=== PATIENT | male | born 1980 | race Caucasian/White ===

== ENCOUNTER 2017-07-18 17:15 | Emergency (ER) | payer SELFPAY ==
[~2017-07-18] VITALS: Ht 175.3 cm; Wt 98.0 kg
[2017-07-18 18:05] VITALS: BP 153/101; PULSE 117; RESP 16; TEMP 98.7; O2SAT 99
--- NOTE | 2017-07-18 19:00 | PD ---
HPI Chief Complaint: Complaint Time Seen by Provider: 18:33 Travel History International Travel<30 days: No Contact w/Intl Traveler<30days: No History of Present Illness HPI 37-year-old male patient presents to the ER today because he states that a few days ago he was having sexual relations with his girlfriend when he suddenly felt like his left testicle popped out of place, he felt like there was a lump there, and it was very painful for about 3 minutes and it popped back into place and he feels like since then he has been having some discomfort in the left testicle area. He is concerned that he may have twisted his testicle or injured something. He denies any trouble urinating, any fevers, or any other issues. Modifying Factors: None Associated Signs & Symptoms: Left testicular lump, pain, possible injury Risk Factors: None PFSH Social History Alcohol Use: Yes (4 DAYS A WEEK) Tobacco Use: No Substance Use: Yes (marijuana) Allergies-Medications (Allergen,Severity, Reaction): Coded Allergies: No Known Allergies (Unverified Adverse Reaction, Unknown, 07/18/17) Reported Meds & Prescriptions Reported Meds & Active Scripts Active No Active Prescriptions or Reported Medications Review of Systems Except as stated in HPI: all other systems reviewed are Neg Physical Exam Narrative GENERAL: Well-developed young male patient currently in no acute distress. Awake and oriented 3. SKIN: Focused skin assessment warm/dry. HEAD: Atraumatic. Normocephalic. EYES: Pupils equal and round. No scleral icterus. No injection or drainage. ENT: No nasal bleeding or discharge. Mucous membranes pink and moist. NECK: Trachea midline. No JVD. CARDIOVASCULAR: Regular rate and rhythm. No murmur appreciated. RESPIRATORY: No accessory muscle use. Clear to auscultation. Breath sounds equal bilaterally. GASTROINTESTINAL: Abdomen soft, non-tender, nondistended. Hepatic and splenic margins not palpable. GENITOURINARY: Circumcised. Testes descended bilaterally without evidence of rotation, left testicle is mildly tender to palpation. No lesions or erythema. No urethral discharge. I do not see any inguinal masses, no palpable hernia currently. MUSCULOSKELETAL: No obvious deformities. No clubbing. No cyanosis. No edema. NEUROLOGICAL: Awake and alert. No obvious cranial nerve deficits. Motor grossly within normal limits. Normal speech. PSYCHIATRIC: Appropriate mood and affect; insight and judgment normal. Data Data Last Documented VS Vital Signs Date Time Temp Pulse Resp B/P (MAP) Pulse Ox O2 Delivery O2 Flow Rate FiO2 07/18/17 18:05 98.7 117 16 153/101 (118) 99 Orders Orders Us Testicles W Doppler (07/18/17 18:28) MDM Medical Decision Making Medical Screen Exam Complete: Yes Emergency Medical Condition: Yes Medical Record Reviewed: Yes Differential Diagnosis Left testicular pain, lump: Testicular torsion versus testicular contusion versus inguinal hernia Narrative Course I do not palpate any obvious inguinal hernia currently, testicles do not appear rotated currently, mildly tender to palpation but was otherwise unremarkable on exam. Testicular ultrasound was ordered for further evaluation. Physician Communication Physician Communication Case is signed out to Dr. Moe at 7 PM pending testicular ultrasound. If testicular ultrasound is negative, planning to release with follow-up to primary care doctor. Diagnosis Primary Impression: Testicular pain, left Scripts No Active Prescriptions or Reported Meds Condition: Stable Breanna Lewis MD Jul 18, 2017 19:00
--- NOTE | 2017-07-18 19:10 | RADRPT ---
EXAM DATE/TIME: 07/18/2017 19:44 [facility] COMPARISON: No previous studies available for comparison. INDICATIONS : Left testicle pain for 3 days. MEDICAL HISTORY : Left testicle pain for 3 days. SURGICAL HISTORY : None. ENCOUNTER: Initial ACUITY: 3 days PAIN SCORE: 3/10 LOCATION: Bilateral scrotum. MEASUREMENTS: RIGHT TESTICLE: 5.0 x 3.7 x 2.2cm LEFT TESTICLE: 4.6 x 3.4 x 2.2cm FINDINGS: RIGHT TESTICLE: Homogeneous echotexture without intra or extratesticular mass. Blood flow is symmetric and within no rmal limits. No hydrocele or varicocele. Epididymis is within normal limits. There are a few tiny echogenic foci seen within the testicles. LEFT TESTICLE: Homogeneous echotexture without intra or extratesticular mass. Blood flow is symmetric and within no rmal limits. No hydrocele or varicocele. Epididymis is within normal limits. There are a few tiny echogenic foci seen within the testicles. SCROTUM: Within normal limits. CONCLUSION: 1. The testicles are normal in size. Normal flow is seen bilaterally. 2. There a few tiny echogenic foci in the testicles likely related to mild microlithiasis. Luis Miguel Glass MD on July 18, 2017 at 19:06 Board Certified Radiologist. This report was verified electronically.
--- NOTE | 2017-07-18 20:01 | PD ---
Physical Exam Narrative Patient signed out to me by Dr. Lewis. Please see her documentation for complete details. Briefly, patient is a 37 year old male who comes in complaining of testicular pain after ejaculation 2 days ago. He says he had intercourse with his five times that day. He says he felt "a pop" at the time and severe pain, which has since gone away. He says now he just feels a dull ache to his groin. He has no other symptoms related to this. I was told by Dr. Lewis that his exam was within normal limits with no masses or hernia felt. Data Data Last Documented VS Vital Signs Date Time Temp Pulse Resp B/P (MAP) Pulse Ox O2 Delivery O2 Flow Rate FiO2 07/18/17 18:05 98.7 117 16 153/101 (118) 99 Orders Orders Us Testicles W Doppler (07/18/17 18:28) MDM Supervised Visit with SARAH: No Narrative Course US of the testicles performed shows no acute abnormalities. Patient offered further testing, but he says he is comfortable knowing his testicle is ok and he will return if he has any future issues. Told to follow up with urology as needed. Advised to return any time for any worsening symptoms. Diagnosis Primary Impression: Testicular pain, left Referrals: Gee Thompson DO call for appointment Patient Instructions: General Instructions, Testicle Pain (ED) Additional Instruction: Follow up with urology as needed. Take Ibuprofen as needed for pain. Return any time for any worsening symptoms. Scripts No Active Prescriptions or Reported Meds Disposition: 01 DISCHARGE HOME Condition: Stable Jennifer Asencio MD Jul 18, 2017 20:01
== END 2017-07-18 20:10 | disposition home or self-care (01) ==
LOC: NEPC 17:15
DX: N50.812 Left testicular pain (principal); F12.90 Cannabis use, unspecified, uncomplicated
CPT/HCPCS: 76870; 93975